=== PATIENT | male | born 1945 | race Caucasian/White ===

== ENCOUNTER 2020-07-23 10:03 | Emergency (ER) | payer MEDICARE | END 2020-07-23 10:06 | disposition E | LOC: MADERS 10:03 | DX: I46.9 Cardiac arrest, cause unspecified (principal); E11.9 Type 2 diabetes mellitus without complications; Z86.718 Personal history of other venous thrombosis and embolism; Z79.899 Other long term (current) drug therapy | CPT/HCPCS: 92950 ==